=== PATIENT | female | born 1945 ===

== ENCOUNTER 2021-08-09 09:33 | Outpatient (CLI) | payer OTHER | END 2021-08-09 11:39 | disposition home or self-care (01) | LOC: SONOGRAMA 09:33 | PROVIDERS: ATTEND Pathology Anatomic Pathology & Clinical Pathology | DX: E07.89 Other specified disorders of thyroid (principal); D34 Benign neoplasm of thyroid gland; E04.8 Other specified nontoxic goiter ==